=== PATIENT | female | born 1980 | race Caucasian/White ===

== ENCOUNTER → 2016-04-18 | Outpatient (CLI) | payer OTHER ==
[~2016-04-18] MED LIST: ACET325T96 PO; FLUT1POW8 NAE; IBUP-103 PO; LORA-741 PO; MULT-506 PO
== END | disposition home or self-care (01) ==
LOC: C.PAPS 08:32
PROVIDERS: ATTEND Obstetrics & Gynecology
DX: Z01.419 Encounter for gynecological examination (general) (routine) without abnormal findings (principal)

== ENCOUNTER → 2016-04-18 | Outpatient (CLI) | payer OTHER ==
[2016-04-25 13:53] LABS: CHLAMYDIA TRACH RNA*** NOT DETECTED (NOT DETECTED); GC (NEIS GONORRHOEAE)RNA** NOT DETECTED (NOT DETECTED); TRICHOMONAS VAGINALIS RNA** NOT DETECTED (NOT DETECTED)
== END | disposition home or self-care (01) ==
LOC: C.LAB1850 13:28
PROVIDERS: ATTEND Obstetrics & Gynecology
DX: Z11.3 Encounter for screening for infections with a predominantly sexual mode of transmission (principal)

== ENCOUNTER → 2016-07-16 | Outpatient (CLI) | payer OTHER ==
[2016-07-16 12:07] LABS: BASO % 0.3 %; BASO ABS # 0.02 K/uL (0-0.2); COMPLETE YES; EOS % 1.4 %; HEMATOCRIT 41.3 % (37-47); IG% 0.2 %; LYMPH % 39.3 %; LYMPH ABS # 2.25 K/uL (1.2-3.4); MEAN CORPUSCULAR HEMOGLOBIN 29.7 pg (25-34); MEAN CORPUSCULAR HGB CONC 33.4 g/dl (32-36); MEAN PLATELET VOLUME 10.1 fL (7.4-10.4); MONO % 5.2 %; NEUT % 53.6 %; PLATELET COUNT 329 K/uL (130-400); RED BLOOD COUNT 4.64 M/uL (4.2-5.4); WHITE BLOOD COUNT 5.72 K/uL (4.8-10.8)
[2016-07-16 12:14] LABS: URINE APPEARANCE CLEAR (CLEAR); URINE BILIRUBIN NEG (NEG); URINE COLOR YELLOW; URINE EPITHELIAL CELL AUTO >30 /lpf (0-5); URINE NITRITE NEG (NEG); URINE SPECIFIC GRAVITY 1.013 (1.000-1.030); UROBILINOGEN NEG (NEG); ZZUR CULT IF INDIC CLEAN CATCH YES
[2016-07-16 12:26] LABS: ALT/SGPT 21 U/L (12-78); AST/SGOT 11 U/L (15-37); BLOOD UREA NITROGEN 13 mg/dl (7-18); BUN/CREATININE RATIO 18.1 (10-20); CALCIUM 8.8 mg/dl (8.5-10.1); CARBON DIOXIDE 28 mmol/L (21-32); CHLORIDE 107 mmol/L (98-107); CREATININE 0.73 mg/dl (0.60-1.20); GLUCOSE 86 mg/dl (70-99); POTASSIUM 4.1 mmol/L (3.5-5.1); SODIUM 140 mmol/L (136-145)
[2016-07-16 12:28] LABS: MANUAL MICROSCOPIC REQUIRED? NO; REVIEW REQ? NO
[2016-07-16 12:47] LABS: ALB/GLOB RATIO 1.1 (0.9-2); ALKALINE PHOSPHATASE 85 U/L (45-117); CHOLESTEROL 251 mg/dl (0-200); CHOLESTEROL/HDL RATIO 6.1; HDL CHOLESTEROL 41 mg/dl; TRIGLYCERIDES 430 mg/dl (0-150)
[2016-07-20 10:21] LABS: 17 HYDROXYPROGEST 17180X 57 ng/dL; ANA SCREEN Negative (Negative); TESTOSTERONE,TOTAL 41 ng/dL (2-45)
== END | disposition home or self-care (01) ==
LOC: C.LABBFT 09:07
PROVIDERS: ATTEND Internal Medicine
DX: R76.8 Other specified abnormal immunological findings in serum (principal); E55.9 Vitamin D deficiency, unspecified; Z13.6 Encounter for screening for cardiovascular disorders; L68.0 Hirsutism

== ENCOUNTER → 2016-07-29 | Outpatient (CLI) | payer OTHER ==
--- NOTE | 2016-07-29 12:44 | DIAGNOSTIC IMAGING REPORT ---
RIGHT HAND MIN 3 VIEWS ROUTINE CLINICAL HISTORY: Right hand pain COMPARISON: None. DISCUSSION: No acute fractures or dislocations are visualized. There is a 10 mm lytic lesion involving the base of the proximal phalanx of the fifth finger. 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 IMPRESSION: 1. 10 mm lytic lesion involving the base of the proximal phalanx of the fifth finger 2. No acute fractures or dislocations identified. Electronically signed by: Herve Shoemaker M.D. 07/29/2016 12:43 PM Dictated Date/Time: 07/29/2016 12:41 PM
--- NOTE | 2016-07-29 12:50 | DIAGNOSTIC IMAGING REPORT ---
LEFT HAND MIN 3 VIEWS ROUTINE CLINICAL HISTORY: M25.549 Pain in joint, hand pain COMPARISON: None. DISCUSSION: The bones and joint spaces appear intact. There is no evidence of fracture, dislocation or bony disease. There is no evidence for soft tissue swelling. IMPRESSION: Negative study. Electronically signed by: Lane Burleson M.D. 07/29/2016 12:49 PM Dictated Date/Time: 07/29/2016 12:44 PM
[2016-07-31 20:18] LABS: ALBUMIN 4.5 G/DL (3.8-4.8); ANTI-CENTROMERE AB <1.0 NEG AI (<1.0 NEG); ANTI-SS-A <1.0 NEG AI (<1.0 NEG); ANTI-SS-B <1.0 NEG AI (<1.0 NEG); DNA ds CRITHIDIA NEGATIVE (NEGATIVE); GAMMA GLOBULIN 0.9 G/DL (0.8-1.7); Sm Antibody <1.0 NEG AI (<1.0 NEG); TOTAL PROTEIN 7.4 G/DL (6.2-8.3)
== END | disposition home or self-care (01) ==
LOC: C.RAD1850 12:04
PROVIDERS: ATTEND Internal Medicine Rheumatology
DX: M25.541 Pain in joints of right hand (principal); M25.542 Pain in joints of left hand; R76.8 Other specified abnormal immunological findings in serum; M35.7 Hypermobility syndrome; R93.7 Abnormal findings on diagnostic imaging of other parts of musculoskeletal system

== ENCOUNTER → 2016-08-19 | Outpatient (CLI) | payer OTHER | END | disposition home or self-care (01) | LOC: C.LABSPEC 17:54 | PROVIDERS: ATTEND Nurse Practitioner | DX: R39.9 Unspecified symptoms and signs involving the genitourinary system (principal) ==

== ENCOUNTER → 2016-12-12 | Outpatient (CLI) | payer OTHER | END | disposition home or self-care (01) | LOC: C.LABSPEC 15:26 | PROVIDERS: ATTEND Physician Assistant | DX: L29.8 Other pruritus (principal) ==

== ENCOUNTER → 2017-08-01 | Outpatient (CLI) | payer OTHER ==
[~2017-08-01] MED LIST changes: +ACET-1693 PO; -ACET325T96 PO
[2017-08-01 12:45] LABS: ALBUMIN 4.2 gm/dl (3.4-5.0); ALT/SGPT 19 U/L (12-78); AST/SGOT 14 U/L (15-37); BLOOD UREA NITROGEN 17 mg/dl (7-18); CALCIUM 8.9 mg/dl (8.5-10.1); CARBON DIOXIDE 27 mmol/L (21-32); CHOLESTEROL 237 mg/dl (0-200); CREATININE 0.79 mg/dl (0.60-1.20); GLUCOSE 85 mg/dl (70-99); GLUCOSE,FASTING 85 mg/dl (70-99); POTASSIUM 3.8 mmol/L (3.5-5.1); SODIUM 137 mmol/L (136-145)
[2017-08-01 12:53] LABS: LUTEINIZING HORMONE 29.82 IU/L
[2017-08-01 12:54] LABS: FOLLICLE STIMULAT HORMONE 7.3 IU/L
[2017-08-01 12:55] LABS: ALKALINE PHOSPHATASE 79 U/L (45-117); LDL CHOLESTEROL CALCULATED 155 mg/dl; TRANSFERRIN 283 mg/dl (200-360)
== END | disposition home or self-care (01) ==
LOC: C.LABBFT 09:24
PROVIDERS: ATTEND Internal Medicine Endocrinology, Diabetes & Metabolism
DX: L68.0 Hirsutism (principal); E78.00 Pure hypercholesterolemia, unspecified; L29.8 Other pruritus; R94.6 Abnormal results of thyroid function studies; R53.83 Other fatigue; E55.9 Vitamin D deficiency, unspecified

== ENCOUNTER → 2017-08-08 | Outpatient (CLI) | payer OTHER | END | disposition home or self-care (01) | LOC: C.LABSPEC 10:59 | PROVIDERS: ATTEND Obstetrics & Gynecology | DX: L29.8 Other pruritus (principal) ==

== ENCOUNTER → 2017-11-17 | Day surgery (SDC) | payer OTHER ==
[~2017-11-17] VITALS: Ht 174 cm; Wt 68.2 kg
[~2017-11-17] MED LIST changes: +CHOL1TAB42; +COSYNTROPIN INJ 250 MCG in SYRINGE 4 ML IV SCH; +MELA1TAB5 PO
[2017-11-17 08:12] VITALS: BP 117/68; TEMP 36.6; O2SAT 99; Ht 174 cm; Wt 68.2 kg
[2017-11-17 08:51] VITALS: BP 116/76; PULSE 86
== END | disposition home or self-care (01) ==
LOC: C.MTU 07:45
PROVIDERS: ATTEND Internal Medicine Endocrinology, Diabetes & Metabolism
DX: R53.83 Other fatigue (principal)

== ENCOUNTER 2022-06-03 07:48 | Inpatient (IN) ==
[2022-06-03] MEDS ORDERED: OXYTOCIN 30 UNITS/500 ML BAG IV PRN (07:50)
[2022-06-03] MEDS ORDERED: LIDOCAINE 1% LOCAL 20 ML VIAL INFIL PRN (07:50)
[2022-06-03 08:32] LABS: Hematocrit (blood only) 34.2 % (37.0-47.0); Hemoglobin 11.6 g/dl (12.0-16.0); Mean Corpuscular Hemoglobin 29.7 pg (25.0-34.0); Mean Corpuscular Hgb Conc 33.9 g/dL (32.0-36.0); Mean Corpuscular Volume 87.7 fL (80.0-100.0); Mean Platelet Volume 10.5 fL (9.4-12.4); Platelet Count 197 K/uL (130-400); RDW Coefficient of Variation 16.1 % (11.5-14.5); RDW Standard Deviation 51.2 fL (36.4-46.3); White Blood Count 11.04 K/ul (4.8-10.8)
[2022-06-03] MEDS: LACTATED RINGER'S 1,000 ML IV PRN ×3 (09:05→18:15)
[2022-06-03] MEDS: OXYTOCIN 30 UNITS/500 ML BAG IV PRN (09:12)
--- NOTE | 2022-06-03 09:33 | History & Physical Report ---
Date of Service June 03, 2022 Assessment & Plan (1) Encounter for induction of labor: Plan: 42 yo primip who presents for IOL because of term she had good result from the balloon but cervix still posterior . start pitocin induction - will AROM when cervix more anterior epidural when requested anticipate vaginal delivery Admission and Anticipated Discharge Date Admission Date: June 03, 2022 History of Present Illness Primary Care Provider: Eugene Herrera MD 42 yo female with EDC of 06/04/22 presents at 39 6/7 weeks for IOL because of AMA over 40 years. She had a cervical balloon successfully placed last night which was expelled at 0100. no contractions presently. (+) bloody show. GBS - negative Allergies Allergy/AdvReac Type Severity Reaction Status Date / Time ciprofloxacin [From Cipro] Allergy Mild Rash Verified 06/02/22 19:45 Home Medications Medication Instructions Recorded Confirmed Type lorazepam 0.5 mg tablet 0.5 mg PO BID PRN anxiety #10 tabs 11/24/20 05/30/22 Rx cholecalciferol (vitamin D3) 125 125 mcg PO DAILY #30 caps 12/30/20 05/30/22 Rx mcg (5,000 unit) capsule prenat.vits,ella,bzq-zkpb-depsa PO 10/16/21 05/30/22 History ascorbic acid (vitamin C) PO 10/17/21 05/30/22 History sertraline 25 mg tablet 25 mg PO DAILY #30 tabs 12/12/21 05/30/22 Rx Saccharomyces boulardii [Daily PO 02/15/22 05/30/22 History Probiotic (S. boulardii)] aspirin 81 mg tablet,delayed 81 mg PO DAILY 02/15/22 05/30/22 History release dextrin [Easy Fiber] PO 02/15/22 05/30/22 History ondansetron HCl 4 mg tablet 4 mg PO Q6H PRN nausea and 03/28/22 05/30/22 Rx vomiting #20 tabs Patient History Medical History Depression with anxiety Dyslipidemia GERD (gastroesophageal reflux disease) Hirsutism Migraine Raynaud's syndrome Surgical History History of dental surgery Family History (Updated 10/17/21 @ 13:30 by Shaina Hi) Father Cirrhosis Diabetes Irritable bowel syndrome Mother Goiter Sarcoidosis Other Allergic rhinitis Alzheimer disease Arthritis Denies family history of Ovarian cancer Breast cancer Colorectal cancer Uterine cancer Social History (Updated 10/17/21 @ 13:31 by Shaina Hi) Smoking Status: Never smoker Second Hand Exposure: Yes; Hx Alcohol Use: No Hx Substance Use: No Preferred Language: Setswana marital status: marital status details: Chay (40) [phone] Current Living Situation: Spouse Current Living Situation Comment: lives with spouse, no pets current occupational status: employed current occupation: [employer] Feels Safe at Home: Yes Dental Care, Regularly: Yes Physical Activity Frequency: 1-2 Times per Week Seatbelt Use: always Sunscreen Use: Yes Review of Systems All systems reviewed & are unremarkable except as noted in HPI & below Physical Exam Constitutional: WD/WN, vitals as above Psychiatric: A+Ox3, euthymic affect Genitourinary: OB Exam Abdomen: + vertex, + estimated weight (8-9 pounds) and + irregular contractions (rare) Manual OB Exam: + cervical dilation 4 cm, + cervical effacement 80% and + station -2 (posterior) OB Exam Monitor Tracing: + external FHT monitor used, + external uterine monitor used and + category I (occasional variable after acceleration) Coding Level of Care Code None Diagnoses Encounter for induction of labor Z34.90
[2022-06-03] MEDS: SERTRALINE HCL 50 MG TABLET PO SCH (10:07)
[2022-06-03] MEDS ORDERED: ePHEDrine sulfate 50 MG/ML AMP ONE (15:58)
[2022-06-03] MEDS ORDERED: fentaNYL citrate PF 100 MCG/2 ML VIAL ONE (15:58)
[2022-06-03] MEDS ORDERED: SODIUM CHLORIDE 0.9% PF INJ 10 ML VIAL ONE (15:58)
[2022-06-03] MEDS ORDERED: LIDOCAINE 2%/EPINEPHRINE 1:200,000 20 ML PF ONE (15:58)
[2022-06-03] MEDS ORDERED: BUPIVACAINE 0.25% PF 30 ML VIAL ONE (15:58)
[2022-06-03] MEDS ORDERED: fentaNYL 2MCG/ML ROPIVACAINE 1.25MG/ML 100 ML BAG EPI ONE (15:59)
[2022-06-03] MEDS ORDERED: NALOXONE HCL 1 MG in SODIUM CHLORIDE 0.9% 1000ML 1,000 ML IV PRN (16:26)
[2022-06-03] MEDS ORDERED: NALBUPHINE HCL INJ 10 MG/ML AMP IV PRN (16:26)
[2022-06-03] MEDS ORDERED: diphenhydrAMINE 50 MG/ML VIAL IV PRN (16:26)
[2022-06-03] MEDS ORDERED: ONDANSETRON INJ 2 MG/ML 2 ML VIAL IV PRN (16:26)
[2022-06-03] MEDS ORDERED: ePHEDrine sulfate 50 MG/ML AMP IV PRN (16:26)
[2022-06-03] MEDS ORDERED: NALOXONE HCL 0.4 MG/1 ML VIAL/CARP IV PRN (16:26)
--- NOTE | 2022-06-03 16:27 | Anesthesiology Consultation ---
Date of Service June 03, 2022 Assessment & Plan (1) Encounter for pre-operative examination: Chart Review Chart Review: Patient NOT seen in Pre Admission Testing and Acceptable Risk for Labor Epidural Consults Requested none History Height/Weight Height: 5 ft 8 in Weight: 88.904 kg Allergies Allergy/AdvReac Type Severity Reaction Status Date / Time ciprofloxacin [From Cipro] Allergy Mild Rash Verified 06/02/22 19:45 Medications Home Medications Medication Instructions Recorded Confirmed Last Taken cholecalciferol (vitamin D3) 125 125 mcg PO DAILY #30 caps 12/30/20 06/03/22 06/02/22 08:00 mcg (5,000 unit) capsule aspirin 81 mg tablet,delayed 81 mg PO DAILY 02/15/22 06/03/22 06/02/22 08:00 release ondansetron HCl 4 mg tablet 4 mg PO Q6H PRN nausea and 03/28/22 06/03/22 05/30/22 21:00 vomiting #20 tabs prenat.vits,ella,pyp-tcjw-aulhg 1 tab PO DAILY 06/03/22 06/03/22 06/02/22 08:00 Active Medications Generic Name Dose Route Start Last Admin Trade Name Freq PRN Reason Stop Dose Admin Lactated Ringer's 1,000 mls @ 125 mls/hr 06/03/22 07:50 06/03/22 16:05 Lr IV 06/05/22 07:49 999 mls/hr .Q8H PRN Administration L&D Protocol Protocol Oxytocin 30 units in 500 mls @ 15 mls/hr 06/03/22 07:50 06/03/22 13:42 Pitocin IV 06/05/22 07:49 0.9 units/hr .Q24H PRN 15 mls/hr Labor Induction/Augmentation Titration Protocol 0.9 UNITS/HR Sertraline HCl 25 mg 06/03/22 09:00 06/03/22 10:07 Sertraline Hcl 50 Mg Tablet PO 07/03/22 08:59 Not Given DAILY AZAR Past Medical History Medical History Depression with anxiety Dyslipidemia GERD (gastroesophageal reflux disease) Hirsutism Migraine Raynaud's syndrome Exercise / Class Metabolic Activity II 4-5 Yardwork/Stairs/Walk up hill Past Family History Family History Father Cirrhosis Diabetes Irritable bowel syndrome Mother Goiter Sarcoidosis Other Allergic rhinitis Alzheimer disease Arthritis Denies family history of Ovarian cancer Breast cancer Colorectal cancer Uterine cancer Past Surgical History Surgical History History of dental surgery Past Anesthesia History No Hx of Anesthesia Complications and No Family Hx of Anesthesia Complications Social History Smoking Status: Never smoker Hx Alcohol Use: No Hx Substance Use: No substance use type: does not use Physical Exam Vital Signs Last Vital Signs Temp 36.8 C 06/03/22 15:27 Pulse 94 H 06/03/22 16:58 Resp 20 06/03/22 15:27 BP 109/69 06/03/22 15:27 Pulse Ox 100 06/03/22 16:58 Testing Laboratory Results 06/03/22 08:15
--- NOTE | 2022-06-03 20:49 | Labor Progress Brief Note ---
Date of Service June 03, 2022 Subjective Reason For Note: Routine Evaluation epidural analgesia working well pitocin at 19 milliunits with ctns q 2-3 minutes apart cervix 4cm/80/-2 AROM for thin mec stained fluid FHT's category 1 continue current labor plan. Assessment & Plan Admission and Anticipated Discharge Date Admission Date: June 03, 2022 Physical Exam Constitutional: WD/WN, vitals as above Psychiatric: A+Ox3, euthymic affect Results & Data ([facility]) Vital Signs (Past 12 Hours) Vital Signs Temp Pulse Resp BP Pulse Ox 06/03/22 19:01 98.1 F 18 06/03/22 09:48 98.2 F 20 06/03/22 20:43 97 H 99 06/03/22 20:38 100 H 109/64 100 06/03/22 20:33 101 H 100 06/03/22 20:28 88 98 06/03/22 20:22 18 06/03/22 20:22 18 06/03/22 20:25 95 H 110/58 L 06/03/22 20:23 98 H 99 06/03/22 20:18 97 H 98 06/03/22 20:13 92 H 99 06/03/22 20:08 92 H 98 06/03/22 20:09 91 H 114/61 06/03/22 20:03 92 H 100 06/03/22 19:58 86 99 06/03/22 19:54 96 H 114/70 06/03/22 19:53 98 H 99 06/03/22 19:48 88 98 06/03/22 19:43 106 H 99 06/03/22 19:38 94 H 111/62 99 06/03/22 19:33 104 H 100 06/03/22 19:28 104 H 100 06/03/22 19:26 97 H 106/63 06/03/22 19:23 100 H 100 06/03/22 19:18 96 H 100 06/03/22 19:13 89 100 06/03/22 19:08 106 H 91 06/03/22 19:03 98 H 99 06/03/22 18:58 92 H 97 06/03/22 18:53 89 129/76 99 06/03/22 18:48 96 H 99 06/03/22 18:43 94 H 99 06/03/22 18:38 95 H 129/74 98 06/03/22 18:33 93 H 97 06/03/22 18:28 92 H 98 06/03/22 18:24 96 H 127/75 06/03/22 18:23 94 H 98 06/03/22 18:18 101 H 100 06/03/22 18:13 88 100 06/03/22 18:08 90 100 06/03/22 18:09 94 H 133/74 06/03/22 18:03 95 H 100 06/03/22 17:58 96 H 98 06/03/22 17:53 98 H 130/74 99 06/03/22 17:48 105 H 99 06/03/22 17:43 104 H 100 06/03/22 17:38 98 H 99 06/03/22 17:35 95 H 130/75 06/03/22 17:33 94 H 98 06/03/22 17:28 100 H 98 06/03/22 17:29 103 H 128/75 06/03/22 17:24 101 H 127/73 06/03/22 17:23 100 H 99 06/03/22 17:20 100 H 132/77 06/03/22 17:18 100 H 100 06/03/22 17:13 92 H 100 06/03/22 17:14 99 H 129/77 06/03/22 17:08 99 06/03/22 17:08 95 H 06/03/22 17:08 90 128/71 06/03/22 17:06 97 H 125/69 06/03/22 17:03 89 100 06/03/22 17:04 90 123/68 06/03/22 17:02 94 H 125/69 06/03/22 17:00 88 129/72 06/03/22 16:58 94 H 100 06/03/22 16:53 102 H 100 06/03/22 16:48 107 H 100 06/03/22 16:43 109 H 100 06/03/22 15:27 98.2 F 96 H 20 109/69 06/03/22 10:56 96 H 111/71 Coding Level of Care Code None Diagnoses
[2022-06-04] MEDS: fentaNYL 2MCG/ML ROPIVACAINE 1.25MG/ML 100 ML BAG EPI PRN ×2 (00:48→08:23)
[2022-06-04] MEDS: LACTATED RINGER'S 1,000 ML IV PRN ×3 (00:51→12:27)
[2022-06-04] MEDS ORDERED: LIDOCAINE 2%/EPINEPHRINE 1:200,000 20 ML PF ONE (03:42)
[2022-06-04] MEDS ORDERED: BUPIVACAINE 0.25% PF 30 ML VIAL ONE (03:45)
--- NOTE | 2022-06-04 04:02 | Communication Note ---
Date of Service: June 04, 2022 Pt with increasing pain despite using bolus on epidural infusion pump. Gave an additional 4ml of 0.25% bupivicaine mixed with 4ml 2% lidocaine with epi. Pt on monitor. VSS. Pain improved.
--- NOTE | 2022-06-04 06:20 | Communication Note ---
Date of Service: June 04, 2022 Again called by nursing as patient with increased pain during contractions. Made minimal change since last bolus. Patient on monitor and bolused with 5ml of 2% lidocaine and 5ml of 0.25% bupivicaine in divided doses. After bolus, pain improved. I also tested patient sensory change level to ice 10 minutes after the bolus and she had a T4 level on the right and a T6 level on the left. Patient barely able to move her legs. Spoke at length with patient that it's less than ideal to provide multiple boluses in a short amount of time. If she continues to have breakthrough pain it's possible that the epidural might need to be replaced. She obtained an excellent sensory change level with the most recent bolus so I do feel the epidural is working appropriately.
--- NOTE | 2022-06-04 10:07 | Labor Progress Brief Note ---
Date of Service June 04, 2022 Subjective Patient met in LD room with Kirsten RN earlier this morning. She was c/o increased pelvic pressure and pain, intermittently tearful. Course of labor thus far reviewed with Dr. Herzog and also with Kirsten. Patient has had a few re-doses of epidural and struggles to get comfortable at times but responds well to coaching. Does voice a h/o anxiety and asks about ativan; discussed not recommended at this time, could consider benadryl or similar. Assessment & Plan (1) Encounter for induction of labor: Plan IOL in primip, 42yo, c/b depression and anxiety, with near-complete cervical dilation. A test push was attempted and not able to get all remaining cervix to reduce, so patient advised of need for further laboring before 2nd stage begins. Epidural button pushed by nurse and patient shortly thereafter was voicing improved comfort. Brief mention of CSec option in the room, but not recommended nor requested at this time. Will continue to labor. Admission and Anticipated Discharge Date Admission Date: June 03, 2022 Physical Exam Genitourinary: No further cervical change FHT Cat 1 Pit @ 20 at the time of exam [place] Q4 LOF clear Labia w/ mild edema No jenkins in place at the time of exam Results & Data ([facility]) Vital Signs (Past 12 Hours) Vital Signs Temp Pulse Resp BP Pulse Ox 06/04/22 09:59 103 H 91 06/04/22 09:57 96 H 91 06/04/22 09:52 96 H 93 06/04/22 09:49 96 H 93 06/04/22 09:47 97 H 90 06/04/22 09:46 96 H 115/56 L 06/04/22 09:42 106 H 95 06/04/22 09:41 101 H 81 L 06/04/22 09:34 101 H 94 06/04/22 09:31 100 H 06/04/22 09:31 113 H 124/66 94 06/04/22 09:28 99 H 94 06/04/22 09:23 94 06/04/22 09:23 107 H 91 06/04/22 09:18 109 H 97 06/04/22 09:13 94 H 91 06/04/22 09:08 114 H 91 06/04/22 09:07 118 H 91 06/04/22 09:00 109 H 92 06/04/22 08:56 120 H 92 06/04/22 08:55 114 H 96 06/04/22 08:49 126 H 94 06/04/22 08:50 110 H 95 06/04/22 08:45 116 H 90 06/04/22 08:44 110 H 93 06/04/22 08:40 109 H 94 06/04/22 08:37 119 H 94 06/04/22 08:35 111 H 94 06/04/22 08:32 110 H 88 L 06/04/22 08:30 108 H 137/75 06/04/22 08:28 115 H 95 06/04/22 08:25 110 H 94 06/04/22 08:23 109 H 95 06/04/22 08:18 117 H 93 06/04/22 08:17 125 H 94 06/04/22 08:15 110 H 115/64 06/04/22 08:13 115 H 97 06/04/22 08:11 117 H 93 06/04/22 08:08 121 H 94 06/04/22 08:05 140 H 94 06/04/22 08:03 112 H 96 06/04/22 08:00 126 H 06/04/22 08:00 116 H 136/71 92 06/04/22 07:58 122 H 97 06/04/22 07:53 109 H 94 06/04/22 07:52 111 H 94 06/04/22 07:48 112 H 98 06/04/22 07:43 115 H 96 06/04/22 07:38 126 H 98 06/04/22 07:33 116 H 99 06/04/22 07:30 98.4 F 112 H 20 139/73 06/04/22 07:28 120 H 97 06/04/22 07:23 124 H 96 06/04/22 07:18 115 H 97 06/04/22 07:16 117 H 129/66 06/04/22 07:13 120 H 97 06/04/22 07:08 113 H 97 06/04/22 07:03 119 H 98 06/04/22 07:00 107 H 129/67 06/04/22 06:58 108 H 99 06/04/22 06:53 101 H 97 06/04/22 06:48 99 H 96 06/04/22 06:46 104 H 113/55 L 06/04/22 06:43 102 H 96 06/04/22 06:38 96 H 96 06/04/22 06:33 106 H 97 06/04/22 06:31 103 H 117/57 L 06/04/22 06:28 103 H 97 06/04/22 06:23 97 H 98 06/04/22 06:18 107 H 97 06/04/22 06:13 113 H 99 06/04/22 06:12 120 H 121/55 L 06/04/22 06:10 107 H 131/65 06/04/22 06:08 111 H 133/58 L 98 06/04/22 06:06 109 H 127/73 06/04/22 06:03 112 H 97 06/04/22 06:04 103 H 16 123/63 06/04/22 06:02 106 H 130/70 06/04/22 06:00 103 H 18 127/62 06/04/22 05:58 113 H 97 06/04/22 05:53 107 H 97 06/04/22 05:48 104 H 96 06/04/22 05:46 114 H 124/83 06/04/22 05:43 114 H 98 06/04/22 05:38 112 H 98 06/04/22 05:33 117 H 97 06/04/22 05:31 113 H 132/78 06/04/22 05:28 117 H 97 06/04/22 05:23 116 H 97 06/04/22 05:18 123 H 97 06/04/22 05:15 114 H 125/63 06/04/22 05:13 101 H 98 06/04/22 05:08 99 H 98 06/04/22 05:03 103 H 99 06/04/22 05:00 98 H 111/56 L 06/04/22 04:58 104 H 98 06/04/22 04:53 91 H 97 06/04/22 04:48 110 H 98 06/04/22 04:42 18 06/04/22 04:42 99.1 F 18 06/04/22 04:43 106 H 100 06/04/22 04:38 116 H 98 06/04/22 04:33 94 H 96 06/04/22 04:30 105 H 114/56 L 06/04/22 04:28 97 H 97 06/04/22 04:23 100 H 97 06/04/22 04:18 98 H 97 06/04/22 04:15 16 06/04/22 04:15 16 06/04/22 04:13 104 H 99 06/04/22 04:11 107 H 113/59 L 06/04/22 04:08 106 H 96 06/04/22 04:06 104 H 112/57 L 06/04/22 04:03 110 H 98 06/04/22 04:00 110 H 135/84 06/04/22 03:58 115 H 97 06/04/22 03:37 18 06/04/22 03:37 98.1 F 18 06/04/22 03:56 103 H 132/75 06/04/22 03:53 108 H 98 06/04/22 03:54 107 H 139/76 06/04/22 03:52 107 H 133/68 06/04/22 03:50 110 H 18 148/68 H 06/04/22 03:48 102 H 20 91 06/04/22 03:49 107 H 172/114 H 06/04/22 03:43 98 H 99 06/04/22 03:38 107 H 96 06/04/22 03:39 105 H 132/66 92 06/04/22 03:33 114 H 98 06/04/22 03:28 107 H 99 06/04/22 03:23 104 H 98 06/04/22 03:18 101 H 98 06/04/22 03:13 99 H 100 06/04/22 03:00 18 06/04/22 03:00 18 06/04/22 03:09 108 H 122/76 06/04/22 03:08 99 H 99 06/04/22 03:03 104 H 97 06/04/22 02:58 100 H 98 06/04/22 02:55 97 H 124/61 06/04/22 02:53 93 H 98 06/04/22 02:48 94 H 97 06/04/22 02:43 98 H 96 06/04/22 02:38 96 H 98 06/04/22 02:39 97 H 113/55 L 06/04/22 02:33 103 H 99 06/04/22 02:28 99 H 98 06/04/22 02:23 106 H 98 03/07/23 02:18 93 H 16 97 06/04/22 02:13 96 H 97 06/04/22 02:08 101 H 103/56 L 98 06/04/22 02:03 88 97 06/04/22 01:58 87 97 06/04/22 01:53 89 98 06/04/22 01:54 84 102/56 L 06/04/22 01:48 85 96 06/04/22 01:43 84 96 06/04/22 01:38 87 101/58 L 98 06/04/22 01:33 89 99 06/04/22 01:28 96 H 98 06/04/22 01:23 89 113/62 97 06/04/22 01:18 89 98 06/04/22 01:13 87 97 06/04/22 01:08 97 06/04/22 01:08 88 06/04/22 01:08 88 112/61 06/04/22 01:03 87 97 06/04/22 00:58 90 96 06/04/22 00:53 102 H 113/60 96 06/04/22 00:48 98.1 F 101 H 18 97 06/04/22 00:43 106 H 99 06/04/22 00:38 104 H 97 06/04/22 00:39 104 H 109/55 L 06/04/22 00:33 93 H 97 06/04/22 00:28 99 H 97 06/04/22 00:23 98 H 112/56 L 97 06/04/22 00:18 97 H 97 06/04/22 00:13 99 H 98 06/04/22 00:10 106 H 118/57 L 06/04/22 00:08 108 H 97 06/04/22 00:03 93 H 97 06/03/22 23:58 94 H 97 06/03/22 23:54 93 H 117/59 L 06/03/22 23:53 94 H 97 06/03/22 23:48 96 H 97 06/03/22 23:43 103 H 99 06/03/22 23:39 90 117/61 06/03/22 23:38 97 H 100 06/03/22 23:33 94 H 98 06/03/22 23:28 91 H 98 06/03/22 23:26 96 H 114/62 06/03/22 23:19 16 06/03/22 23:19 98.1 F 16 06/03/22 23:23 92 H 98 06/03/22 23:18 110 H 100 06/03/22 23:13 93 H 96 06/03/22 23:09 100 H 103/58 L 06/03/22 23:08 92 H 97 06/03/22 23:03 89 96 06/03/22 22:58 94 H 97 06/03/22 22:53 95 H 94 06/03/22 22:54 96 H 97/52 L 06/03/22 22:48 90 96 06/03/22 22:43 92 H 95 06/03/22 22:40 96 H 106/55 L 06/03/22 22:38 92 H 99 06/03/22 22:33 99 H 98 06/03/22 22:19 16 06/03/22 22:19 16 06/03/22 22:28 93 H 97 06/03/22 22:23 100 H 106/56 L 96 06/03/22 22:18 97 H 97 06/03/22 22:13 104 H 99 06/03/22 22:09 107 H 129/76 06/03/22 22:08 104 H 98 06/03/22 22:03 104 H 99 Coding Level of Care Code None Diagnoses Encounter for induction of labor Z34.90
[2022-06-04] MEDS: SERTRALINE HCL 50 MG TABLET PO SCH (10:38)
[2022-06-04] MEDS: OXYTOCIN 30 UNITS/500 ML BAG IV PRN (12:25)
[2022-06-04] MEDS ORDERED: CITRIC ACID/SODIUM CITRATE 15 ML UDC ONE (13:59)
[2022-06-04] MEDS ORDERED: ceFAZolin 3,000 MG in DEXTROSE 5% 50 ML IV SCH (14:00)
[2022-06-04] MEDS ORDERED: LACTATED RINGER'S 1,000 ML IV SCH ×2 (14:00→15:39)
[2022-06-04] MEDS ORDERED: MoRPHine SULFATE PF 1 MG/ML 10 ML AMP/VIAL ONE (14:32)
[2022-06-04] MEDS ORDERED: SODIUM CHLORIDE 0.9% 1000ML 1,000 ML IV SCH (14:45)
[2022-06-04] MEDS ORDERED: ePHEDrine sulfate 50 MG/ML AMP IV PRN (14:45)
[2022-06-04] MEDS ORDERED: NALBUPHINE HCL INJ 10 MG/ML AMP IV PRN (14:45)
[2022-06-04] MEDS ORDERED: diphenhydrAMINE 50 MG/ML VIAL IV PRN (14:45)
[2022-06-04] MEDS ORDERED: NO NARCOTICS OR SEDATIVES SCH (14:45)
[2022-06-04] MEDS ORDERED: DC INTRASPINAL MORPHINE SCH (14:45)
[2022-06-04] MEDS ORDERED: MoRPHine SULFATE PF 1 MG/ML 10 ML AMP/VIAL EPI ONE (14:45)
[2022-06-04] MEDS ORDERED: NALOXONE HCL 0.4 MG/1 ML VIAL/CARP IV PRN (14:45)
[2022-06-04] MEDS ORDERED: PROMETHAZINE HCL 12.5 MG in SODIUM CHLORIDE 0.9% 50 ML IV PRN (14:45)
[2022-06-04] MEDS ORDERED: NALOXONE HCL 0.08 MG in SYRINGE 1.8 ML IV PRN (14:45)
[2022-06-04] MEDS ORDERED: ONDANSETRON INJ 2 MG/ML 2 ML VIAL IV PRN (14:45)
[2022-06-04] MEDS ORDERED: NALOXONE HCL 1 MG in SODIUM CHLORIDE 0.9% 1000ML 1,000 ML IV PRN (14:45)
[2022-06-04] MEDS ORDERED: MoRPHine SULFATE 2 MG/ML CARP IV PRN (14:45)
[2022-06-04] MEDS ORDERED: LACTATED RINGER'S 500 ML IV PRN (14:45)
[2022-06-04] MEDS ORDERED: MEPERIDINE HCL 25 MG/ML CARP/VIAL ONE (14:47)
[2022-06-04] MEDS ORDERED: OXYTOCIN 10 UNITS/ML 10ML VIAL ONE (14:50)
[2022-06-04] MEDS ORDERED: METHYLERGONOVINE MALEATE 0.2 MG/ML AMP ONE (14:50)
[2022-06-04] MEDS ORDERED: PHENYLEPHRINE 100MCG/ML 5ML SYR ONE (14:50)
[2022-06-04] MEDS ORDERED: LIDOCAINE 2% MPF LOCAL 5 ML VIAL INFIL ONE (14:50)
[2022-06-04] MEDS ORDERED: METOCLOPRAMIDE HCL INJ 5 MG/ML 2 ML VIAL ONE (14:50)
[2022-06-04] MEDS ORDERED: ONDANSETRON INJ 2 MG/ML 2 ML VIAL ONE (14:50)
[2022-06-04] MEDS ORDERED: PROPOFOL IV EMULSION 10 MG/ML 20 ML VIAL IV ONE (14:50)
--- NOTE | 2022-06-04 15:18 | Operative Report ---
PG Post Operative Report Pre & Post Diagnosis Operation Date: 06/04/22 14:00 Pre-Op Diagnosis: Induction of Labor Advanced Maternal Age >40yo Meconium Stained Fluid Failure to Descend Post-Op Diagnosis: Induction of Labor Advanced Maternal Age >40yo Meconium Stained Fluid Failure to Descend I identified the patient and participated in the time-out.: Yes Procedure Operation Date: 06/04/22 14:00 Actual Procedures Section in LD Surgeon Sonya Roa MD Corrections Caseworker [id number] Michael Estimated Blood Loss 500 Findings Consistent with Post-Op Diagnosis Specimens Placenta, Cord blood Anesthesia Type L&D Only Epidural Exists Complications none Disposition Accompanied Patient To Recovery: Yes Disposition: L&D Description of Procedure The patient was brought to the operating room and placed on the table in the supine position with a leftward tilt, then prepped and draped in standard sterile fashion. Of note, the jenkins was noted at the time of my arrival at the OR bed to be filled with mon porfirio-aid colored urine, and this was commented upon. Per the RN this color was also seen at previous catheterizations this morning. A hard time out was taken prior to proceeding. A Pfannensteil inci rafi was created sharply and carried down to the fascia using bovie electrocautery. The fascia was nicked and then extended using jurado scissors. The edges of the fascia were grasped with Carrie clamps and elevated, then sharply and bluntly dissected off the underlying rectus. The midline of the rectus was identified and bluntly . The peritoneum was bluntly entered, and this entry was extended using pressure from the surgeon's hands. The bladder retractor was placed and the lower uterine segment was examined and found to be well developed. A bladder flap was created and the retractor was replaced behind this flap to protect the bladder. A transverse lower uterine incision was then created, with final entry to the uterine cavity made in a blunt manner with the surgeon's finger. Meconium stained amniotic fluid was encountered. The head was easily elevated to the incision and delivered using mild fundal pressure. The cord was doubly clamped and cut, then the vigorous was taken to the warmer for print developer care with Dr. Jordan, having already cried on the sterile field. The placenta was manually extracted, then the uterus was gently exteriorized from the maternal abdomen. The cavity was cleared of clot and debris using a dry lap sponge. The angles of the incision were identified with allis clamps, and the hysterotomy was then repaired in running locked fashion using 0-vicryl suture, followed by a second imbricating layer. The tubes and ovaries were examined and found to be normal bilaterally. The posterior gutter was irrigated and cleared of clot and debris. The uterus was then gently re-internalized to the abdomen. Lateral gutters were cleared of clot and debris using a damp lap sponge, and a final exam of the hysterotomy revealed good hemostasis. The rectus muscles were allowed to reapproximate naturally. The angle of the fascia was grasped with a Carrie clamp and the fascia was then repaired in running non-locked fashion with 1- vicryl suture. At the completion of repair, the fascia was examined and found to be free of any defect. The subcutaneous tissue was copiously irrigated and then reapproximated using 3-0 chromic. The skin was then closed using 4-0 monocryl in a running subcuticular fashion and a dermabond dressing was applied. The jenkins was noted to be draining urine that was not yet clear yellow, but was a slat pickler (now pink to saab) color than it had been at the beginning of the case, as the patient was transferred back to her recovery room. I attest to the content of the Intraoperative Record and any orders documented therein. Any exceptions are noted below. OB Procedure Charges 79652
[2022-06-04] MEDS ORDERED: MAGNESIUM HYDROXIDE SUSP 30 ML UDC PO PRN (15:39)
[2022-06-04] MEDS ORDERED: SENNA 8.6 MG TAB PO PRN (15:39)
[2022-06-04] MEDS ORDERED: DIPHTHERIA/TETANUS/PERTUSSIS 0.5mL SYR/VIAL (Age 7+yrs) IM ONE (15:39)
[2022-06-04] MEDS ORDERED: HYDROCORTISONE ACETATE 25 MG SUPP PR PRN (15:39)
[2022-06-04] MEDS ORDERED: BENZOCAINE 20% AER SPR 82.5 GM CAN EXT PRN (15:39)
[2022-06-04] MEDS: KETOROLAC 30 MG/ML VIAL IV PRN (15:58)
[2022-06-04] MEDS: OXYTOCIN 30 UNITS in LACTATED RINGER'S 1,000 ML IV SCH (16:50)
--- NOTE | 2022-06-04 19:07 | Anesthesia Procedure Note ---
Date of Service June 04, 2022 Anesthesia Post Epidural Note Vital Signs Vital Signs: Temp Pulse Resp BP Pulse Ox 36.8 C 80 18 119/64 93 06/04/22 15:09 06/04/22 17:10 06/04/22 18:26 06/04/22 17:09 06/04/22 18:26 Pain Intensity Lower Abdomen: Pain Intensity: 6 Bilateral Lower Medial Abdomen: Pain Intensity: 6 Notes Mental Status: alert / awake / arousable and participated in evaluation Nausea / Vomiting: adequately controlled Pain: adequately controlled Airway Patency, RR, SpO2: stable & adequate BP & HR: stable & adequate Hydration State: stable & adequate Neuraxial Anesthesia: was administered and sensory block is resolving Anesthetic Complications: no major complications apparent Epidural: Removed without complications and With tip intact
--- NOTE | 2022-06-04 19:07 | Anesthesiology Progress Note ---
Date of Service June 04, 2022 Anesthesia Post Procedure Vital Signs Vital Signs: Temp Pulse Resp BP Pulse Ox 06/04/22 18:26 18 93 06/04/22 17:30 18 93 06/04/22 15:09 36.8 C 18 06/04/22 17:10 80 97 06/04/22 17:09 84 119/64 06/04/22 17:05 88 96 06/04/22 17:00 83 96 06/04/22 16:59 83 125/68 06/04/22 16:55 88 95 06/04/22 16:50 107 H 98 06/04/22 16:49 103 H 121/75 06/04/22 16:45 84 93 06/04/22 16:40 95 06/04/22 16:40 78 06/04/22 16:40 81 126/68 06/04/22 16:35 79 93 06/04/22 16:30 98 06/04/22 16:30 81 06/04/22 16:30 83 111/75 06/04/22 16:25 80 97 06/04/22 16:20 86 96 06/04/22 16:19 83 118/74 06/04/22 16:15 80 96 06/04/22 16:11 81 93 06/04/22 16:10 85 94 06/04/22 16:09 88 122/64 06/04/22 16:05 82 97 06/04/22 16:00 81 95 06/04/22 15:59 83 120/65 06/04/22 15:55 85 98 06/04/22 15:50 102 H 98 06/04/22 15:49 93 H 115/62 06/04/22 15:45 85 96 06/04/22 15:40 89 98 06/04/22 15:39 86 117/61 06/04/22 15:35 91 H 99 06/04/22 15:30 95 H 98 06/04/22 15:29 88 122/63 06/04/22 15:27 91 H 92 06/04/22 15:25 101 H 98 06/04/22 15:20 93 H 99 06/04/22 15:19 93 H 119/61 06/04/22 15:15 96 H 99 06/04/22 15:10 99 06/04/22 15:10 95 H 0323 15:10 94 H 117/57 L 06/04/22 14:00 95 H 119/65 06/04/22 13:58 95 H 100 06/04/22 13:53 95 H 100 06/04/22 13:48 101 H 100 06/04/22 13:45 100 H 127/63 06/04/22 13:43 95 H 100 06/04/22 13:38 94 H 100 06/04/22 13:33 102 H 100 06/04/22 13:31 103 H 125/69 06/04/22 13:28 101 H 100 06/04/22 13:27 97 H 86 L 06/04/22 13:23 102 H 100 06/04/22 13:18 98 H 100 06/04/22 13:15 102 H 134/69 06/04/22 13:14 102 H 80 L 06/04/22 13:13 99 H 100 06/04/22 13:08 116 H 97 06/04/22 13:03 97 H 100 06/04/22 13:00 90 133/65 06/04/22 12:58 129 H 99 06/04/22 12:53 94 H 100 06/04/22 12:48 98 H 100 06/04/22 12:47 113 H 86 L 06/04/22 12:45 93 H 128/75 06/04/22 12:43 98 H 100 06/04/22 12:38 105 H 100 06/04/22 12:33 110 H 100 06/04/22 12:31 93 H 126/72 06/04/22 12:28 93 H 100 06/04/22 12:23 94 H 100 06/04/22 12:18 101 H 100 06/04/22 12:16 100 H 119/82 06/04/22 12:14 107 H 83 L 06/04/22 12:13 107 H 97 06/04/22 12:08 106 H 100 06/04/22 12:03 93 H 100 06/04/22 11:58 95 06/04/22 11:58 113 H 06/04/22 11:58 97 H 78 L 06/04/22 11:53 109 H 100 06/04/22 11:48 97 H 100 06/04/22 11:46 94 H 122/68 06/04/22 11:43 95 H 100 06/04/22 11:38 99 H 100 06/04/22 11:33 116 H 99 06/04/22 11:31 101 H 138/72 06/04/22 11:30 103 H 84 L 06/04/22 11:28 93 H 100 06/04/22 11:23 95 H 100 06/04/22 11:18 104 H 98 06/04/22 11:16 110 H 140/64 06/04/22 11:13 104 H 92 06/04/22 11:08 98 H 100 06/04/22 11:03 97 H 100 06/04/22 11:00 91 H 123/73 06/04/22 10:58 92 H 99 06/04/22 10:53 94 H 98 06/04/22 10:48 85 100 06/04/22 10:46 89 125/73 06/04/22 10:43 93 H 100 06/04/22 10:38 102 H 100 06/04/22 10:33 92 H 100 06/04/22 10:31 90 123/66 06/04/22 10:28 95 H 100 06/04/22 10:23 93 H 100 06/04/22 10:18 91 H 100 06/04/22 10:15 93 H 121/78 06/04/22 10:13 97 H 97 06/04/22 10:08 103 H 94 06/04/22 10:06 103 H 94 06/04/22 10:03 95 H 91 06/04/22 09:59 103 H 91 06/04/22 09:57 96 H 91 06/04/22 09:52 96 H 93 06/04/22 09:49 96 H 93 06/04/22 09:47 97 H 90 06/04/22 09:46 96 H 115/56 L 06/04/22 09:42 106 H 95 06/04/22 09:41 101 H 81 L 06/04/22 09:34 101 H 94 06/04/22 09:31 100 H 06/04/22 09:31 113 H 124/66 94 06/04/22 09:28 99 H 94 06/04/22 09:23 94 06/04/22 09:23 107 H 91 06/04/22 09:18 109 H 97 06/04/22 09:13 94 H 91 06/04/22 09:08 114 H 91 06/04/22 09:07 118 H 91 06/04/22 09:00 109 H 92 06/04/22 08:56 120 H 92 06/04/22 08:55 114 H 96 06/04/22 08:49 126 H 94 06/04/22 08:50 110 H 95 06/04/22 08:45 116 H 90 06/04/22 08:44 110 H 93 06/04/22 08:40 109 H 94 06/04/22 08:37 119 H 94 06/04/22 08:35 111 H 94 06/04/22 08:32 110 H 88 L 06/04/22 08:30 108 H 137/75 06/04/22 08:28 115 H 95 06/04/22 08:25 110 H 94 06/04/22 08:23 109 H 95 06/04/22 08:18 117 H 93 06/04/22 08:17 125 H 94 06/04/22 08:15 110 H 115/64 06/04/22 08:13 115 H 97 06/04/22 08:11 117 H 93 06/04/22 08:08 121 H 94 06/04/22 08:05 140 H 94 06/04/22 08:03 112 H 96 06/04/22 08:00 126 H 06/04/22 08:00 116 H 136/71 92 06/04/22 07:58 122 H 97 06/04/22 07:53 109 H 94 06/04/22 07:52 111 H 94 06/04/22 07:48 112 H 98 06/04/22 07:43 115 H 96 06/04/22 07:38 126 H 98 06/04/22 07:33 116 H 99 06/04/22 07:30 36.9 C 112 H 20 139/73 06/04/22 07:28 120 H 97 06/04/22 07:23 124 H 96 06/04/22 07:18 115 H 97 06/04/22 07:16 117 H 129/66 06/04/22 07:13 120 H 97 06/04/22 07:08 113 H 97 06/04/22 07:03 119 H 98 06/04/22 07:00 107 H 129/67 06/04/22 06:58 108 H 99 06/04/22 06:53 101 H 97 06/04/22 06:48 99 H 96 06/04/22 06:46 104 H 113/55 L 06/04/22 06:43 102 H 96 06/04/22 06:38 96 H 96 06/04/22 06:33 106 H 97 06/04/22 06:31 103 H 117/57 L 06/04/22 06:28 103 H 97 06/04/22 06:23 97 H 98 06/04/22 06:18 107 H 97 06/04/22 06:13 113 H 99 06/04/22 06:12 120 H 121/55 L 06/04/22 06:10 107 H 131/65 06/04/22 06:08 111 H 133/58 L 98 06/04/22 06:06 109 H 127/73 06/04/22 06:03 112 H 97 06/04/22 06:04 103 H 16 123/63 06/04/22 06:02 106 H 130/70 06/04/22 06:00 103 H 18 127/62 06/04/22 05:58 113 H 97 06/04/22 05:53 107 H 97 06/04/22 05:48 104 H 96 06/04/22 05:46 114 H 124/83 06/04/22 05:43 114 H 98 06/04/22 05:38 112 H 98 06/04/22 05:33 117 H 97 06/04/22 05:31 113 H 132/78 06/04/22 05:28 117 H 97 06/04/22 05:23 116 H 97 06/04/22 05:18 123 H 97 06/04/22 05:15 114 H 125/63 06/04/22 05:13 101 H 98 06/04/22 05:08 99 H 98 06/04/22 05:03 103 H 99 06/04/22 05:00 98 H 111/56 L 06/04/22 04:58 104 H 98 06/04/22 04:53 91 H 97 06/04/22 04:48 110 H 98 06/04/22 04:42 18 06/04/22 04:42 37.3 C 18 06/04/22 04:43 106 H 100 06/04/22 04:38 116 H 98 03/07/23 04:33 94 H 96 06/04/22 04:30 105 H 114/56 L 06/04/22 04:28 97 H 97 06/04/22 04:23 100 H 97 06/04/22 04:18 98 H 97 06/04/22 04:15 16 06/04/22 04:15 16 06/04/22 04:13 104 H 99 06/04/22 04:11 107 H 113/59 L 06/04/22 04:08 106 H 96 06/04/22 04:06 104 H 112/57 L 06/04/22 04:03 110 H 98 06/04/22 04:00 110 H 135/84 06/04/22 03:58 115 H 97 06/04/22 03:37 18 06/04/22 03:37 36.7 C 18 06/04/22 03:56 103 H 132/75 06/04/22 03:53 108 H 98 06/04/22 03:54 107 H 139/76 06/04/22 03:52 107 H 133/68 06/04/22 03:50 110 H 18 148/68 H 06/04/22 03:48 102 H 20 91 06/04/22 03:49 107 H 172/114 H 06/04/22 03:43 98 H 99 06/04/22 03:38 107 H 96 06/04/22 03:39 105 H 132/66 92 06/04/22 03:33 114 H 98 06/04/22 03:28 107 H 99 06/04/22 03:23 104 H 98 06/04/22 03:18 101 H 98 06/04/22 03:13 99 H 100 06/04/22 03:00 18 06/04/22 03:00 18 06/04/22 03:09 108 H 122/76 06/04/22 03:08 99 H 99 06/04/22 03:03 104 H 97 06/04/22 02:58 100 H 98 06/04/22 02:55 97 H 124/61 06/04/22 02:53 93 H 98 06/04/22 02:48 94 H 97 06/04/22 02:43 98 H 96 06/04/22 02:38 96 H 98 06/04/22 02:39 97 H 113/55 L 03/07/23 02:33 103 H 99 06/04/22 02:28 99 H 98 06/04/22 02:23 106 H 98 06/04/22 02:18 93 H 16 97 06/04/22 02:13 96 H 97 06/04/22 02:08 101 H 103/56 L 98 06/04/22 02:03 88 97 06/04/22 01:58 87 97 06/04/22 01:53 89 98 06/04/22 01:54 84 102/56 L 06/04/22 01:48 85 96 06/04/22 01:43 84 96 06/04/22 01:38 87 101/58 L 98 06/04/22 01:33 89 99 06/04/22 01:28 96 H 98 06/04/22 01:23 89 113/62 97 06/04/22 01:18 89 98 06/04/22 01:13 87 97 06/04/22 01:08 97 06/04/22 01:08 88 06/04/22 01:08 88 112/61 06/04/22 01:03 87 97 06/04/22 00:58 90 96 06/04/22 00:53 102 H 113/60 96 06/04/22 00:48 36.7 C 101 H 18 97 06/04/22 00:43 106 H 99 06/04/22 00:38 104 H 97 06/04/22 00:39 104 H 109/55 L 06/04/22 00:33 93 H 97 06/04/22 00:28 99 H 97 06/04/22 00:23 98 H 112/56 L 97 06/04/22 00:18 97 H 97 06/04/22 00:13 99 H 98 06/04/22 00:10 106 H 118/57 L 06/04/22 00:08 108 H 97 06/04/22 00:03 93 H 97 06/03/22 23:58 94 H 97 06/03/22 23:54 93 H 117/59 L 06/03/22 23:53 94 H 97 06/03/22 23:48 96 H 97 06/03/22 23:43 103 H 99 06/03/22 23:39 90 117/61 06/03/22 23:38 97 H 100 06/03/22 23:33 94 H 98 06/03/22 23:28 91 H 98 06/03/22 23:26 96 H 114/62 06/03/22 23:19 16 06/03/22 23:19 36.7 C 16 06/03/22 23:23 92 H 98 06/03/22 23:18 110 H 100 06/03/22 23:13 93 H 96 06/03/22 23:09 100 H 103/58 L 06/03/22 23:08 92 H 97 06/03/22 23:03 89 96 06/03/22 22:58 94 H 97 06/03/22 22:53 95 H 94 06/03/22 22:54 96 H 97/52 L 06/03/22 22:48 90 96 06/03/22 22:43 92 H 95 06/03/22 22:40 96 H 106/55 L 06/03/22 22:38 92 H 99 06/03/22 22:33 99 H 98 06/03/22 22:19 16 06/03/22 22:19 16 06/03/22 22:28 93 H 97 06/03/22 22:23 100 H 106/56 L 96 06/03/22 22:18 97 H 97 06/03/22 22:13 104 H 99 06/03/22 22:09 107 H 129/76 06/03/22 22:08 104 H 98 06/03/22 22:03 104 H 99 06/03/22 21:58 109 H 99 06/03/22 21:55 108 H 134/74 06/03/22 21:53 104 H 99 06/03/22 21:48 110 H 98 06/03/22 21:43 109 H 99 06/03/22 21:38 109 H 98 06/03/22 21:39 108 H 130/76 06/03/22 21:33 98 H 97 06/03/22 21:28 112 H 98 06/03/22 21:25 37.2 C 99 H 18 117/58 L 06/03/22 21:23 93 H 97 06/03/22 21:18 96 H 99 06/03/22 21:13 94 H 97 06/03/22 21:08 93 H 98 06/03/22 21:09 96 H 103/58 L 06/03/22 21:03 98 H 98 06/03/22 20:58 95 H 99 06/03/22 20:53 100 06/03/22 20:53 97 H 06/03/22 20:53 99 H 109/59 L 06/03/22 20:48 99 H 99 06/03/22 20:43 97 H 99 06/03/22 20:38 100 H 109/64 100 06/03/22 20:33 101 H 100 06/03/22 20:28 88 98 06/03/22 20:22 18 06/03/22 20:22 18 06/03/22 20:25 95 H 110/58 L 06/03/22 20:23 98 H 99 06/03/22 20:18 97 H 98 06/03/22 20:13 92 H 99 06/03/22 20:08 92 H 98 06/03/22 20:09 91 H 114/61 06/03/22 20:03 92 H 100 06/03/22 19:58 86 99 06/03/22 19:54 96 H 114/70 06/03/22 19:53 98 H 99 06/03/22 19:48 88 98 06/03/22 19:43 106 H 99 06/03/22 19:38 94 H 111/62 99 06/03/22 19:33 104 H 100 06/03/22 19:28 104 H 100 06/03/22 19:26 97 H 106/63 06/03/22 19:23 100 H 100 06/03/22 19:18 96 H 100 06/03/22 19:13 89 100 06/03/22 19:08 106 H 91 Pain Intensity Lower Abdomen: Pain Intensity: 6 Bilateral Lower Medial Abdomen: Pain Intensity: 6 Transfer of Care Handoff Completed per policy Notes Mental Status: alert / awake / arousable Patient Amnestic to Procedure: Yes Nausea / Vomiting: adequately controlled Pain: adequately controlled Airway Patency, RR, SpO2: stable & adequate BP & HR: stable & adequate Hydration State: stable & adequate Neuraxial Anesthesia: was administered and sensory block is resolving Anesthetic Complications: no major complications apparent
[2022-06-04] MEDS: DOCUSATE SODIUM 100 MG CAP PO SCH (21:04)
[2022-06-04] MEDS: SIMETHICONE 80 MG CHEW PO SCH (21:04)
[2022-06-05] MEDS: OXYTOCIN 30 UNITS in LACTATED RINGER'S 1,000 ML IV SCH (01:35)
[2022-06-05] MEDS: KETOROLAC 30 MG/ML VIAL IV PRN (01:58)
--- NOTE | 2022-06-05 05:33 | Obstetrical Progress Note ---
Date of Service <Sabrina Rodriguez MD - Last Filed: 06/05/22 06:26> June 05, 2022 Assessment & Plan <Sabrina Rodriguez MD - Last Filed: 06/05/22 06:26> (1) care following delivery: 42 yo female presented for IOL labor course was complicated by failure to progress resulting in a now POD1. GBS neg, Rh pos, RI. Tolerating PO. Satisfactory post progress. Encourage ambulation. c/b AMA <Sonya Roa MD - Last Filed: 06/05/22 07:18> (1) care following delivery: Subjective <Sabrina Rodriguez MD - Last Filed: 06/05/22 06:26> Ambulation: limited ambulation Voiding: jenkins catheter in place Passing Gas:: Yes Diet Tolerance:: regular diet Lochia:: Small Feeding Type:: breast feeding Physical Exam <Sabrina Rodriguez MD - Last Filed: 06/05/22 06:26> Gen: well appearing female in NAD HEENT: AT NC Resp: no increased work of breathing CV: clinically well perfused : uterus firm non-tender at the level of the umbilicus, incision - c/d/i Psych: appropriate mood and affect Neuro: alert and oriented Results & Data ([facility]) <Sabrina Rodriguez MD - Last Filed: 06/05/22 06:26> Vital Signs (Past 12 Hours) Vital Signs Temp Pulse Resp BP Pulse Ox O2 Del Method 06/05/22 05:00 16 97 06/05/22 04:00 16 96 06/05/22 03:00 18 96 06/05/22 02:00 18 96 06/04/22 22:30 16 96 06/04/22 21:30 16 95 06/04/22 20:30 20 97 06/05/22 02:00 18 96 06/05/22 01:00 18 94 06/05/22 00:00 18 94 06/04/22 23:00 18 94 06/04/22 23:15 36.9 C 91 H 16 95/58 L 94 Room Air 06/04/22 19:30 37.0 C 96 H 16 119/74 98 Room Air 06/04/22 19:30 16 98 06/04/22 18:26 18 93 Laboratory Results 06/03/22 08:15 <Sonya Roa MD - Last Filed: 06/05/22 07:18> Co-Signing Physician Notes Resident Physician Supervision Note: I interviewed and examined the patient. Discussed with Dr. Rodriguez and agree with findings and plan as documented in the note. Any exceptions or clarifications are listed here: [ ] Documented By: Sonya Roa MD, FACOG Resident Activity Tracking <Sabrina Rodriguez MD - Last Filed: 06/05/22 06:26> Resident Involvement: Resident Care Provided Care Provided: OB Delivery
[2022-06-05] MEDS ORDERED: CITRIC ACID/SODIUM CITRATE 15 ML UDC PO SCH (06:00)
[2022-06-05 06:37] LABS: Basophils # (auto) 0.02 K/uL (0-0.2); Basophils % (auto) 0.2 %; Eosinophils # (auto) 0.02 K/uL (0-0.50); Eosinophils % (auto) 0.2 %; Hematocrit (blood only) 28.1 % (37.0-47.0); Hemoglobin 9.4 g/dl (12.0-16.0); Immature Granulocytes # (auto) 0.11 K/uL (0.01-0.20); Immature Granulocytes % (auto) 0.9 %; Lymphocytes # (auto) 1.01 K/uL (1.2-3.4); Lymphocytes % (auto) 8.7 %; Mean Corpuscular Hemoglobin 29.2 pg (25.0-34.0); Mean Corpuscular Hgb Conc 33.5 g/dL (32.0-36.0); Mean Corpuscular Volume 87.3 fL (80.0-100.0); Mean Platelet Volume 10.4 fL (9.4-12.4); Monocytes # (auto) 0.81 K/uL (0.11-0.59); Neutrophils # (auto) 9.63 K/uL (1.40-6.50); Platelet Count 169 K/uL (130-400); RDW Coefficient of Variation 16.5 % (11.5-14.5); RDW Standard Deviation 52.3 fL (36.4-46.3); Red Blood Count 3.22 M/uL (4.20-5.40)
[2022-06-05] MEDS: DOCUSATE SODIUM 100 MG CAP PO SCH (08:40)
[2022-06-05] MEDS: FERROUS SULFATE 325 MG TAB PO SCH (08:40)
[2022-06-05] MEDS: PRENATAL VITAMIN 1 TAB PO SCH (08:41)
[2022-06-05] MEDS ORDERED: diphenhydrAMINE 50 MG/ML VIAL IV PRN (08:45)
[2022-06-05] MEDS ORDERED: PROMETHAZINE HCL 25 MG in SODIUM CHLORIDE 0.9% 50 ML IV PRN (08:45)
[2022-06-05] MEDS ORDERED: ONDANSETRON INJ 2 MG/ML 2 ML VIAL IV PRN (08:45)
[2022-06-05] MEDS ORDERED: KETOROLAC 30 MG/ML VIAL IV PRN (08:45)
[2022-06-05] MEDS: SIMETHICONE 80 MG CHEW PO SCH ×4 (08:45→21:18)
[2022-06-05] MEDS ORDERED: diphenhydrAMINE Capsule 25 MG CAP PO PRN (08:45)
[2022-06-05] MEDS ORDERED: MEPERIDINE HCL 50 MG/ML CARP IV PRN (08:45)
[2022-06-05] MEDS: oxyCODONE/ACETAMINOPHEN 5mg/325mg TAB PO PRN ×2 (16:32→21:20)
[2022-06-05] MEDS: IBUPROFEN 600 MG TAB PO PRN ×2 (16:32→21:19)
[2022-06-05] MEDS ORDERED: bisacodyL 5 MG TABEC PO SCH (20:00)
[2022-06-06] MEDS: IBUPROFEN 600 MG TAB PO PRN ×4 (02:17→19:35)
[2022-06-06] MEDS: oxyCODONE/ACETAMINOPHEN 5mg/325mg TAB PO PRN ×4 (02:18→19:36)
--- NOTE | 2022-06-06 06:24 | Obstetrical Progress Note ---
Date of Service <Sabrina Rodriguez MD - Last Filed: 06/06/22 07:03> June 06, 2022 Assessment & Plan <Sabrina Rodriguez MD - Last Filed: 06/06/22 07:03> (1) care following delivery: 42 yo female presented for IOL labor course was complicated by failure to progress resulting in a now POD2. GBS neg, Rh pos, RI. Tolerating PO. Satisfactory post progress. Encourage ambulation. c/b AMA <Brandon Beltran MD - Last Filed: 06/06/22 08:24> (1) care following delivery: Subjective <Sabrina Rodriguez MD - Last Filed: 06/06/22 07:03> Ambulation: ambulating normally Voiding: no voiding problems Passing Gas:: Yes Diet Tolerance:: regular diet Lochia:: Small Feeding Type:: breast feeding (and bottle) Physical Exam <Sabrina Rodriguez MD - Last Filed: 06/06/22 07:03> Gen: well appearing female in NAD HEENT: AT NC Resp: no increased work of breathing CV: clinically well perfused : uterus firm non-tender at the level of the umbilicus, incision - c/d/i Psych: appropriate mood and affect Neuro: alert and oriented Results & Data ([facility]) <Sabrina Rodriguez MD - Last Filed: 06/06/22 07:03> Vital Signs (Past 12 Hours) Vital Signs Temp Pulse Resp BP Pulse Ox O2 Del Method 06/05/22 23:15 36.7 C 62 18 104/70 94 Room Air 06/05/22 19:40 36.6 C 98 H 18 114/65 96 Room Air Laboratory Results 06/05/22 06:10 <Brandon Beltran MD - Last Filed: 06/06/22 08:24> Co-Signing Physician Notes patient seen and evaluated and agree with the findings and plan. routine care. Resident Activity Tracking <Sabrina Rodriguez MD - Last Filed: 06/06/22 07:03> Resident Involvement: Resident Care Provided Care Provided: OB Delivery
[2022-06-06 06:52] LABS: Hematocrit (blood only) 27.6 % (37.0-47.0); Hemoglobin 9.2 g/dl (12.0-16.0)
[2022-06-06] MEDS: SIMETHICONE 80 MG CHEW PO SCH ×5 (08:41→21:42)
[2022-06-06] MEDS: DOCUSATE SODIUM 100 MG CAP PO SCH ×3 (08:42→21:43)
[2022-06-06] MEDS: FERROUS SULFATE 325 MG TAB PO SCH (08:42)
[2022-06-06] MEDS: PRENATAL VITAMIN 1 TAB PO SCH (08:42)
[2022-06-06] MEDS: guaiFENesin 600 MG TABCR PO SCH ×2 (10:06→19:36)
[2022-06-06] MEDS ORDERED: bisacodyL 10 MG SUPP PR PRN (15:10)
[2022-06-07] MEDS: IBUPROFEN 600 MG TAB PO PRN ×2 (04:27→13:06)
[2022-06-07] MEDS: oxyCODONE/ACETAMINOPHEN 5mg/325mg TAB PO PRN ×2 (04:28→13:06)
--- NOTE | 2022-06-07 06:32 | Obstetrical Progress Note ---
Date of Service <Sabrina Rodriguez MD - Last Filed: 06/07/22 06:32> June 07, 2022 Assessment & Plan <Sabrina Rodriguez MD - Last Filed: 06/07/22 06:32> (1) care following delivery: 42 yo female presented for IOL labor course was complicated by failure to progress resulting in a now POD3. GBS neg, Rh pos, RI. Tolerating PO. Satisfactory post progress. Encourage ambulation. c/b AMA <Sonja Monsalve MD, FACOG - Last Filed: 06/07/22 06:57> (1) care following delivery: Subjective <Sabrina Rodriguez MD - Last Filed: 06/07/22 06:32> Ambulation: ambulating normally Voiding: no voiding problems Passing Gas:: Yes Diet Tolerance:: regular diet Lochia:: Small Feeding Type:: breast feeding (and bottle) Physical Exam <Sabrina Rodriguez MD - Last Filed: 06/07/22 06:32> Gen: well appearing female in NAD HEENT: AT NC Resp: no increased work of breathing CV: clinically well perfused : uterus firm non-tender at the level of the umbilicus, incision - c/d/i Psych: appropriate mood and affect Neuro: alert and oriented Results & Data ([facility]) <Sabrina Rodriguez MD - Last Filed: 06/07/22 06:32> Vital Signs (Past 12 Hours) Vital Signs Temp Pulse Resp BP O2 Del Method 06/06/22 23:15 36.7 C 102 H 18 111/71 Room Air 06/06/22 19:35 37.1 C 105 H 18 123/77 Room Air Laboratory Results 06/06/22 06:29 <Sonja Monsalve MD, FACOG - Last Filed: 06/07/22 06:57> Co-Signing Physician Notes Resident Physician Supervision Note: I was present with Dr. Rodriguez during the history and exam. I discussed the case with the resident and agree with the findings and plan as documented in the note. Any exceptions or clarifications are listed here: stable doing well. ready to go home. instructions reviewed. f/u 6wk pp check. abd soft nt 2 down, incision c/d/i with dermabond. nt calves. tr edema. pod #3 primary LTCS. script sent, checked on pa pdmp. denies questions or concerns. Documented By: Sonja Monsalve MD, FACOG Resident Activity Tracking <Sabrina Rodriguez MD - Last Filed: 06/07/22 06:32> Resident Involvement: Resident Care Provided Care Provided: OB Delivery
[2022-06-07] MEDS: FERROUS SULFATE 325 MG TAB PO SCH (08:07)
[2022-06-07] MEDS: SIMETHICONE 80 MG CHEW PO SCH ×2 (08:07→13:07)
[2022-06-07] MEDS: guaiFENesin 600 MG TABCR PO SCH (08:08)
[2022-06-07] MEDS: PRENATAL VITAMIN 1 TAB PO SCH (08:08)
[2022-06-07] MEDS: DOCUSATE SODIUM 100 MG CAP PO SCH (08:08)
--- NOTE | 2022-06-10 17:12 | Discharge Summary ---
Date of Service June 10, 2022 Admission HPI Per Admitting Provider 42 yo female with EDC of 06/04/22 presents at 39 6/7 weeks for IOL because of AMA over 40 years. Discharge Data Consultations 06/03/22 07:51 Consult Anesthesiology Stat Procedures Performed Operation Date: 06/04/22 14:00 Actual Procedures p Section in LD; Live Male Infant at 1428(Bilateral) - Sonya Roa MD Hospital Course (1) Supervision of elderly primigravida: Patient presented for IOL. She received a jenkins for ripening, then received pitocin and and epidural, which required redosing for intractable pelvic and hip pain. She reached complete dilation per nurse exam and second stage began. After pushing for two hours without descent of the vertex, and during which she suffered recurrent panic attacks, the patient was counseled on options for CSection (recommended given no descent, hip pain and labial edema suggesting CPD, and meconium stained fluid) vs continued pushing (acceptable given FHT reassuring and possible poor effort during panic). The was agreed upon, proceeded, and was uncomplicated. Hematuria present prior to and improved by the end further suggested CPD. Recovery was usual, and she was discharged home on POD#3 with typical pain management Rx for percocet and plan for 6wk PPX follow up. Coding Level of Care Code None Diagnoses Supervision of elderly primigravida O09.519
== END 2022-06-07 14:30 | disposition home or self-care (01) | DRG 788 ==
LOC: 4S1 07:48 → 4E2 06-04 17:36